=== PATIENT | female | born 1965 | race Asian ===

== ENCOUNTER → 2018-09-20 12:16 | Outpatient (CLI) | payer OTHER, SELFPAY ==
--- NOTE | 2018-09-20 | DI.ECHO.S_ITS ---
[facility] +---------+ : : [address] : [place] : : : : [id number] : : : : Phone: [phone]+ Echocardiogram Report + + :Name: LEONIE SAHU Study Date: 09/20/2018 Height: 60 in : :[facility] Weight: 140 lb: : Gender: Female BSA: 1.6 m2 : :: 1965 Age: 52 yrs : :Reason For Study: Dyspnea : : Performed By: Ruby Rueda : :Referring: FRANCISCO MOORE M : + + Interpretation Summary The left ventricle is normal in size, wall thickness, and systolic function without any focal wall motion abnormalities. The ejection fraction is estimated to be 60-65%. Diastolic parameters suggest a relaxation abnormality of the left ventricle, consistent with probable normal filling pressures. The right ventricle is normal in size and function. There is mild mitral regurgitation. There is mild to moderate aortic regurgitation. The IVC is of normal diameter and collapses greater than 50% with a sniff. This suggests a low right atrial pressure of 3 mm Hg. No other echocardiographic abnormalities seen. No obvious etiology for the patient's dyspnea is identified on this exam. This patient does have a fairly normal-appearing aortic valve and aortic root however has mild to moderate aortic insufficiency noted as well. It is not likely that the patient's mild to moderate aortic insufficiency accounts for any symptoms at this point. Procedure: A two-dimensional transthoracic echocardiogram with color flow and Doppler was performed. The study quality was technically adequate. There is no prior echocardiogram noted for this patient. The patient was in normal sinus rhythm during the exam. Left Ventricle: The left ventricle is normal in size, wall thickness, and systolic function without any focal wall motion abnormalities. The ejection fraction is estimated to be 60-65%. Diastolic parameters suggest a relaxation abnormality of the left ventricle, consistent with probable normal filling pressures. Right Ventricle: The right ventricle is normal in size and function. Atria: The left atrial size is normal. Right atrial size is normal. The interatrial septum is intact with no evidence for an atrial septal defect. Mitral Valve: The mitral valve is grossly normal. There is mild mitral regurgitation. Aortic Valve: The aortic valve is trileaflet. The aortic valve opens well. There is mild to moderate aortic regurgitation. Tricuspid Valve: The tricuspid valve is normal in structure and function. No tricuspid regurgitation. Pulmonary artery pressures cannot be estimated because of the lack of a measurable TR jet velocity. Pulmonic Valve: The pulmonic valve is not well seen, but is grossly normal. There is no pulmonic valvular regurgitation. Great Vessels: The aortic root is normal size. The dimensions of the ascending aorta are normal. The aortic arch is normal in size. The IVC is of normal diameter and collapses greater than 50% with a sniff. This suggests a low right atrial pressure of 3 mm Hg. Pericardium/ Pleura There is no pericardial effusion. There is no pleural effusion. MMode/2D Measurements & Calculations LVIDd: 4.6 cm Ao root diam: 2.8 cm LVIDs: 3.0 cm Aortic Jxn: 2.6 cm FS: 34.9 % asc Aorta Diam: 3.3 cm EPSS: 1.0 cm Ao Arch Diam (Prox Trans): 2.8 cm IVSd: 0.71 cm LVPWd: 0.82 cm LV dos santos. diameter/BSA (cm/m^2): 2.9 LV sys. diameter/BSA (cm/m^2): 1.9 LA dimension: 3.4 cm RA long axis: 4.3 cm LA A2 area: 18.5 cm2 RA area: 11.1 cm2 LA A4 area: 15.5 cm2 RA vol: 24.3 ml LA length (vol): 4.8 cm RA : 15.1 ml/m2 LA vol: 50.7 ml IVC diam: 1.4 cm LA vol index: 31.6 ml/m2 Doppler Measurements & Calculations Ao V2 max: 142.4 cm/sec AI P1/2t: 443.0 msec Ao V2 mean: 98.9 cm/sec AI dec slope: 329.0 cm/sec2 Ao max P.1 mmHg Ao mean P.5 mmHg Ao V2 VTI: 26.9 cm MV E max erik: 70.5 cm/sec PA V2 max: 95.3 cm/sec MV A max erik: 95.2 cm/sec PA V2 mean: 56.1 cm/sec MV E/A: 0.74 PA mean P.6 mmHg Med Peak E' Erik: 4.9 cm/sec PA Accel Time: 0.16 sec E/E' med: 14.3 Lat Peak E' Erik: 9.4 cm/sec E/E' lat: 7.5 E/e' average: 10.9 MV dec time: 0.18 sec MV P1/2t: 53.3 msec MV P1/2t max erik: 70.2 cm/sec MVA(P1/2t): 4.1 cm2 Reading Physician:03:46 PM
== END ==
PROVIDERS: Visit Provider Family Medicine
DX: I08.0 Rheumatic disorders of both mitral and aortic valves (principal); R06.00 Dyspnea, unspecified
CPT/HCPCS: 93306